=== PATIENT | female | born 1955 | race Caucasian/White ===

== ENCOUNTER 2024-04-29 22:49 | Emergency (ER) | payer OTHER ==
[2024-04-29 22:54] VITALS: BP 154/71
[2024-04-29 23:01] VITALS: BP 139/70
[2024-04-29 23:15] VITALS: BP 143/62
[2024-04-29] MEDS ORDERED: HYDROmorphone HCL 2 MG/AMP IV ONE (23:15)
[2024-04-29] MEDS ORDERED: ONDANSETRON HCl 4 MG/2 ML SDV IV ONE (23:15)
[2024-04-29 23:30] VITALS: BP 138/73
[2024-04-29 23:45] VITALS: BP 137/71
[2024-04-30] VITALS (9 sets, daily range): BP systolic 97–113; BP diastolic 51–58
[2024-04-30] MEDS ORDERED: PERCOCET1 TA4 PO (00:49)
[2024-04-30] MEDS ORDERED: ZOFRAN4 MG/TAB PO (21:30)
== END 2024-04-30 02:00 | disposition home or self-care (01) | DRG 563 ==
LOC: ED 22:49
DX: S42.211A Unspecified displaced fracture of surgical neck of right humerus, initial encounter for closed fracture (principal); S42.251A Displaced fracture of greater tuberosity of right humerus, initial encounter for closed fracture; I10 Essential (primary) hypertension; K21.9 Gastro-esophageal reflux disease without esophagitis; W01.0XXA Fall on same level from slipping, tripping and stumbling without subsequent striking against object, initial encounter
CPT/HCPCS: J1171; J2405

== ENCOUNTER 2024-04-30 20:42 | Emergency (ER) | payer OTHER ==
[~2024-04-30] VITALS: Ht 167.6 cm; Wt 116.1 kg
[~2024-04-30 20:42] MED LIST: PERCOCET1 TA4 PO
[2024-04-30 20:55] VITALS: BP 121/71
[2024-04-30 21:00] VITALS: BP 126/65
[2024-04-30 21:15] VITALS: BP 121/68
[2024-04-30] MEDS ORDERED: ONDANSETRON 4 MG/TAB ODT PO ONE (21:15)
[2024-04-30] MEDS ORDERED: HYDROmorphone HCL 2 MG/AMP IM ONE (21:15)
[2024-04-30] MEDS ORDERED: ZOFRAN4 MG/TAB PO (21:30)
[2024-04-30 21:31] VITALS: BP 107/57
[2024-04-30 22:35] VITALS: BP 107/57
[2024-04-30] MEDS ORDERED: PROMETHAZINE HCL 25 MG/ML AMP IM ONE (23:10)
== END 2024-05-01 00:12 | disposition home or self-care (01) | DRG 392 ==
LOC: ED 20:42
DX: R11.2 Nausea with vomiting, unspecified (principal); I10 Essential (primary) hypertension; K21.9 Gastro-esophageal reflux disease without esophagitis; S42.291D Other displaced fracture of upper end of right humerus, subsequent encounter for fracture with routine healing; X58.XXXD Exposure to other specified factors, subsequent encounter
CPT/HCPCS: J1171; J2550